=== PATIENT | male | born 1960 | race Caucasian/White ===

== ENCOUNTER → 2016-03-29 | Outpatient (REF) | payer BC, OTHER ==
[2016-03-29 13:10] LABS: IMMUNOGLOBULIN A 43.4 MG/DL (70-400); IMMUNOGLOBULIN G 452 MG/DL (681-1648); IMMUNOGLOBULIN M 71.1 MG/DL (40-230); TOTAL PROTEIN 6.2 GM/DL (6.4-8.2)
[2016-03-31 00:06] LABS: FREE KAPPA LIGHT CHAINS SERUM 7.68 mg/L (3.30-19.40); FREE LAMBDA LIGHT CHAINS SERUM 3.27 mg/L (5.71-26.30); KAPPA/LAMBDA RATIO SERUM 2.35 (0.26-1.65)
[2016-03-31 13:05] LABS: ALBUMIN 3.97 GM/DL (3.29-5.55); ALBUMIN % 64.1 % (55.8-66.1); GAMMA GLOBULIN % 8.3 % (11.1-18.8)
== END ==
LOC: M LAB REF 12:12
PROVIDERS: ATTEND Internal Medicine Medical Oncology
DX: E78.6 Lipoprotein deficiency (principal)

== ENCOUNTER → 2016-07-28 | Outpatient (REF) | payer BC, OTHER ==
[2016-07-28 13:30] LABS: IMMUNOGLOBULIN A 50.4 MG/DL (70-400); IMMUNOGLOBULIN G 459 MG/DL (681-1648); IMMUNOGLOBULIN M 79.8 MG/DL (40-230)
[2016-07-30 00:19] LABS: FREE KAPPA LIGHT CHAINS SERUM 8.13 mg/L (3.30-19.40); FREE LAMBDA LIGHT CHAINS SERUM 6.16 mg/L (5.71-26.30); KAPPA/LAMBDA RATIO SERUM 1.32 (0.26-1.65)
[2016-08-02 13:27] LABS: ALBUMIN % 65.7 % (55.8-66.1); GAMMA GLOBULIN % 7.1 % (11.1-18.8)
== END ==
LOC: M LAB REF 08:30
PROVIDERS: ATTEND Internal Medicine Medical Oncology
DX: Z85.72 Personal history of non-Hodgkin lymphomas (principal)

== ENCOUNTER → 2016-12-06 | Outpatient (REF) | payer BC, OTHER ==
[2016-12-06 14:07] LABS: IMMUNOGLOBULIN A 43.1 MG/DL (70-400); IMMUNOGLOBULIN G 437 MG/DL (681-1648); IMMUNOGLOBULIN M 83.7 MG/DL (40-230); TOTAL PROTEIN 6.6 GM/DL (6.4-8.2)
[2016-12-07 10:53] LABS: ALBUMIN 4.38 GM/DL (3.29-5.55); ALBUMIN % 66.4 % (55.8-66.1); GAMMA GLOBULIN % 7.3 % (11.1-18.8)
[2016-12-09 00:08] LABS: FREE KAPPA LIGHT CHAINS SERUM 5.8 mg/L (3.3-19.4); FREE LAMBDA LIGHT CHAINS SERUM 6.8 mg/L (5.7-26.3); KAPPA/LAMBDA RATIO SERUM 0.85 (0.26-1.65)
== END ==
LOC: M LAB REF 12:35
PROVIDERS: ATTEND Internal Medicine Medical Oncology
DX: Z85.72 Personal history of non-Hodgkin lymphomas (principal)

== ENCOUNTER → 2016-12-08 | Outpatient (CLI) | payer BC, OTHER ==
[~2016-12-08] MED LIST: GASTROGRAFIN SOLUTION 30ML (Q9963) As Ordered ONE; ISOVUE-370 76% 100ML VIAL (Q9967) As Ordered ONE
--- NOTE | 2016-12-08 11:36 | REP ---
CT NECK WITH CONTRAST: HISTORY: Lymphoma. CONTRAST: Isovue 370, 100 mL. COMPARISON: 04/23/2014. The naso-, debo- and hypopharynx, larynx and subglottic trachea are normal in appearance. The salivary and thyroid glands are normal in size and density. Small lymph nodes less than 1 cm in size are present in the internal jugular chains, posterior triangles, submandibular and submental areas. Degenerative change is present in the cervical spine. The lung apices are clear. The visualized sinuses are clear. IMPRESSION: There is no neck mass or adenopathy. Signed by Jose Francisco Billingsley MD 12/08/2016 11:40 A
--- NOTE | 2016-12-09 07:09 | REP ---
Clinical: History of lymphoma for reevaluation. Technique: Axial contrast enhanced images from the thoracic inlet to the upper abdomen using 100 ml Isovue 370 intravenous contrast material with coronal and sagittal re-formations. Comparison: 04/23/2014. Findings: The lung peter are well-aerated and demonstrate chronic, age appearing interstitial changes along with minimal scattered chronic fibroatelectatic change and posterior dependent changes. No acute consolidation, significant nodule or mass lesion. No pleural effusion/reaction or pneumothorax. Again bronchial tree is patent. No axillary, hilar, or mediastinal adenopathy. Stable calcified right hilar lymph nodes are unchanged. Mediastinum demonstrates normal thoracic aorta, pulmonary vasculature and heart/pericardium. Limited upper abdomen demonstrates fatty infiltration to the liver along with few scattered stable hypodensities suggesting cysts as well as cholelithiasis. Normal bilateral adrenal glands identified. Surrounding musculoskeletal structures demonstrate stable degenerative changes including Schmorl's nodes involving the superior endplate of T8 and T10. Impression: Chronic interstitial changes and scattered fibro atelectatic change. No acute adenopathy, mass lesion or pleural effusion. Signed by Francisco Ngo MD 12/09/2016 07:01 A
--- NOTE | 2016-12-09 07:15 | REP ---
Clinical: Lymphoma for reevaluation. Technique: Axial contrast enhanced images from the lung bases to the pubic symphysis using oral and 100 ml Isovue 370 intravenous contrast material with precontrast and delayed images of the abdomen as well as coronal and sagittal re-formations. Comparison: 04/23/2014. Findings: Liver demonstrates fatty infiltration along with few scattered stable hypodensities measuring up to 1.5 cm and consistent with small benign hepatic cysts. Spleen, pancreas, bilateral adrenal glands and kidneys are normal. Cholelithiasis noted without CT evidence for acute cholecystitis. The enteric system is without obstruction or acute inflammatory process and a normal terminal ileum and appendix are identified in the right lower quadrant. Few scattered sigmoid diverticula noted without acute diverticulitis. Pelvis demonstrates normal bladder and age appropriate prostate/seminal vesicles. No ascites. No intraperitoneal or retroperitoneal adenopathy. No free air. Vasculature appears normal and without aneurysm or dissection. Musculoskeletal structures demonstrate age-related changes without focal osseous abnormality. Impression: 1. No acute abdominopelvic pathology appreciated. Specifically, no adenopathy, mass, or ascites. 2. Stable fatty infiltration to the liver with scattered hepatic hypodensities compatible with cysts. 3. Cholelithiasis without CT evidence for acute cholecystitis. 4. Further chronic changes as described above. Signed by Francisco Ngo MD 12/09/2016 07:06 A
== END ==
LOC: M RAD 09:00
PROVIDERS: ATTEND Internal Medicine Medical Oncology
DX: K80.80 Other cholelithiasis without obstruction (principal); Z85.72 Personal history of non-Hodgkin lymphomas
CPT/HCPCS: 70491; 71260; 74178; Q9963; Q9967

== ENCOUNTER → 2017-03-13 | Outpatient (CLI) | payer BC, OTHER | LOC: M RAD 14:20 | DX: R05 Cough (principal) | CPT/HCPCS: 71046 ==

== ENCOUNTER → 2017-06-08 | Outpatient (REF) | payer BC, OTHER ==
[2017-06-09 10:47] LABS: ALBUMIN 4.57 GM/DL (3.29-5.55); ALBUMIN % 65.3 % (55.8-66.1); ALPHA-1-GLOBULIN % 4.2 % (2.9-4.9); ALPHA-1-GLOBULINS 0.29 GM/DL (0.17-0.41); ALPHA-2-GLOBULINS 0.85 GM/DL (0.42-0.99); ALPHA-2-GLOBULINS % 12.2 % (7.1-11.8); BETA-1-GLOBULINS 0.41 GM/DL (0.28-0.60); BETA-1-GLOBULINS % 5.8 % (4.7-7.2); BETA-2-GLOBULINS 0.34 GM/DL (0.19-0.55); BETA-2-GLOBULINS % 4.8 % (3.2-6.5); GAMMA GLOBULIN % 7.7 % (11.1-18.8); GAMMA GLOBULINS 0.54 GM/DL (0.65-1.58)
[2017-06-10 00:06] LABS: BETA 2 MICROGLOBULIN 1.5 mg/L (0.6-2.4)
[2017-06-10 00:06] LABS: FREE KAPPA LIGHT CHAINS SERUM 6.5 mg/L (3.3-19.4); FREE LAMBDA LIGHT CHAINS SERUM 7.6 mg/L (5.7-26.3); KAPPA/LAMBDA RATIO SERUM 0.86 (0.26-1.65)
== END ==
LOC: M LAB REF 13:04
DX: C85.90 Non-Hodgkin lymphoma, unspecified, unspecified site (principal)
CPT/HCPCS: 84165

== ENCOUNTER → 2017-09-12 | Outpatient (REF) | payer BC, OTHER ==
[2017-09-13 17:28] LABS: LDL DIRECT 131 mg/dL (0-99)
== END ==
LOC: M LAB REF 13:21
DX: E78.00 Pure hypercholesterolemia, unspecified (principal)

== ENCOUNTER → 2017-12-06 | Outpatient (CLI) | payer BC, OTHER ==
[~2017-12-06] MED LIST changes: +GASTROGRAFIN SOLUTION 30ML (Q9963) As Ordered; -GASTROGRAFIN SOLUTION 30ML (Q9963) As Ordered ONE; +ISOVUE-370 76% 100ML VIAL (Q9967) As Ordered; -ISOVUE-370 76% 100ML VIAL (Q9967) As Ordered ONE
== END ==
LOC: M RAD 11:24
DX: C83.90 Non-follicular (diffuse) lymphoma, unspecified, unspecified site (principal); K76.0 Fatty (change of) liver, not elsewhere classified; K76.89 Other specified diseases of liver
CPT/HCPCS: Q9963

== ENCOUNTER → 2019-04-15 | Outpatient (REF) | payer BC, OTHER ==
[~2019-04-15] MED LIST changes: +ATOR1TAB21 PO; +DULO1CAP6 PO; +FLOM0.4C39 PO; -GASTROGRAFIN SOLUTION 30ML (Q9963) As Ordered; -ISOVUE-370 76% 100ML VIAL (Q9967) As Ordered; +OXCA300S3 PO; +PROP60TA14 PO; +SYNT50TA PO
[2019-04-15 13:04] LABS: BASO % 0.5 % (0.0-1.0); EOS # 0.1 10^3/uL (0.0-0.5); EOS % 1.9 % (0.0-3.0); HEMATOCRIT 45.1 % (42.0-52.0); HEMOGLOBIN 15.5 g/dl (13.5-17.5); LYMPH # 1.2 10^3/uL (1.5-5.0); LYMPH % 20.8 % (24.0-44.0); MEAN CORPUSCULAR HEMOGLOBIN 32.9 pg (27.0-33.0); MEAN CORPUSCULAR HGB CONC 34.4 g/dl (32.0-36.5); MEAN CORPUSCULAR VOLUME 95.8 fl (80.0-96.0); MONO # 0.5 10^3/uL (0.0-0.8); MONO % 8.3 % (0.0-5.0); NEUTROPHILS # 3.9 10^3/uL (1.5-8.5); NEUTROPHILS % 68.3 % (36.0-66.0); PLATELET COUNT, AUTOMATED 165 10^3/uL (150-450); RED BLOOD COUNT 4.71 10^6/uL (4.30-6.10); WHITE BLOOD COUNT 5.7 10^3/uL (4.0-10.0)
[2019-04-15 13:19] LABS: ALBUMIN 3.9 GM/DL (3.2-5.2); ALT/SGPT 50 U/L (12-78); BILIRUBIN,TOTAL 0.5 MG/DL (0.2-1.0); BLOOD UREA NITROGEN 14 MG/DL (7-18); CALCIUM LEVEL 8.9 MG/DL (8.5-10.1); CARBON DIOXIDE LEVEL 28 MEQ/L (21-32); CHLORIDE LEVEL 108 MEQ/L (98-107); GLOMERULAR FILTRATION RATE > 60.0 (>56); GLUCOSE, FASTING 154 MG/DL (70-100); POTASSIUM SERUM 3.9 MEQ/L (3.5-5.1); RHEUMATOID FACTOR QUANT < 10.0 IU/ML (<15.0); SODIUM LEVEL 140 MEQ/L (136-145)
[2019-04-15 13:20] LABS: VITAMIN B12 LEVEL 748 PG/ML
[2019-04-15 13:21] LABS: FOLATE 18.9 NG/ML
[2019-04-15 13:28] LABS: ERYTHROCYTE SEDIMENTATION RATE 21 mm/hr (0-20)
[2019-04-15 13:32] LABS: HEMOGLOBIN A1c 6.5 %
[2019-04-16 10:45] LABS: ALBUMIN % 56.5 % (55.8-66.1); ALPHA-1-GLOBULIN % 4.2 % (2.9-4.9); ALPHA-2-GLOBULINS % 12.1 % (7.1-11.8); BETA-1-GLOBULINS % 5.9 % (4.7-7.2); BETA-2-GLOBULINS % 4.9 % (3.2-6.5)
[2019-04-16 10:46] LABS: ALBUMIN 4.17 GM/DL (3.29-5.55); ALPHA-1-GLOBULINS 0.29 GM/DL (0.17-0.41); ALPHA-2-GLOBULINS 0.85 GM/DL (0.42-0.99); BETA-1-GLOBULINS 0.41 GM/DL (0.28-0.60); BETA-2-GLOBULINS 0.34 GM/DL (0.19-0.55); GAMMA GLOBULIN % 13.4 % (11.1-18.8); GAMMA GLOBULINS 0.94 GM/DL (0.65-1.58)
[2019-04-16 10:59] LABS: DRVV SCREEN 45.5 SEC
[2019-04-16 11:03] LABS: PTT LUPUS TYPE ANTICOAG SCREEN 1.1 (0-1.2)
== END ==
LOC: M LABNEURO 09:04
PROVIDERS: ATTEND Psychiatry & Neurology Neurology
DX: G62.9 Polyneuropathy, unspecified (principal)

== ENCOUNTER → 2019-08-14 | Outpatient (CLI) | payer BC, OTHER ==
[~2019-08-14] MED LIST changes: +ACET-907 PO; +CYCL-707 PO; +GASTROGRAFIN SOLUTION 30ML (Q9963) As Ordered ONE; +ISOVUE-370 76% 100ML VIAL As Ordered ONE; +METF-838; +MYSO50TA5 PO; +NORC1TAB7 PO; +PRIM50TA6 PO
--- NOTE | 2019-08-14 10:09 | REP ---
Clinical: History of B-cell lymphoma. Technique: Axial contrast enhanced images from the thoracic inlet to the upper abdomen (followed by CT of the abdomen and pelvis) using 100 ml Isovue 370 intravenous contrast material. Coronal and sagittal re-formations obtained. Comparison: 12/06/2017. Findings: Enlarged lymph nodes in the right axillary region measure up to 2.6 cm maximal diameter. No significant left axillary, mediastinal, or hilar adenopathy noted. Further evaluation of the mediastinum demonstrates normal thoracic aorta, pulmonary vasculature and heart/pericardium. The bilateral lung peter are well-aerated and clear. No consolidation, significant nodule, or mass lesion. No pleural effusion. No pneumothorax. Surrounding musculoskeletal structures are intact. Impression: 1. Prominent right axillary adenopathy up to 2.6 cm diameter. 2. No further adenopathy, mediastinal or pleuroparenchymal process appreciated. Electronically Signed by Francisco Ngo MD 08/14/2019 10:00 A
--- NOTE | 2019-08-14 10:16 | REP ---
Clinical: History of B-cell lymphoma. Technique: Axial contrast enhanced images from the lung bases to the pubic symphysis using 100 ml Isovue 370 intravenous contrast material with coronal and sagittal re-formations. Delayed images of the abdomen obtained. Comparison: 12/06/2017. Findings: Liver again demonstrates few scattered small hepatic cysts measuring up to 1.4 cm diameter. Spleen, pancreas, bilateral adrenal glands and kidneys are normal. Cholelithiasis noted without acute cholecystitis. The enteric system is without obstruction or acute inflammatory process. Few scattered colonic diverticula noted without acute diverticulitis. Normal terminal ileum and appendix identified in the right lower quadrant. Pelvis demonstrates normal bladder and age appropriate prostate/seminal vesicles. No ascites. No free air. No adenopathy. Abdominal aorta and vasculature without aneurysm or dissection. Musculoskeletal structures are intact. Impression: 1. Few stable hepatic cysts again noted. 2. Cholelithiasis. 3. Colonic diverticula without acute diverticulitis. 4. No evidence for adenopathy, recurrence or metastatic disease. Electronically Signed by Francisco Ngo MD 08/14/2019 10:08 A
== END ==
LOC: M RAD 07:27
PROVIDERS: ATTEND Internal Medicine Medical Oncology
DX: C85.10 Unspecified B-cell lymphoma, unspecified site (principal)
CPT/HCPCS: 71260; 74177; Q9963; Q9967

== ENCOUNTER → 2020-01-01 | Outpatient (CLI) | payer BC, OTHER ==
[~2020-01-01] MED LIST changes: -ACET-907 PO; -CYCL-707 PO; -GASTROGRAFIN SOLUTION 30ML (Q9963) As Ordered ONE; -ISOVUE-370 76% 100ML VIAL As Ordered ONE; -METF-838; -MYSO50TA5 PO; -NORC1TAB7 PO
== END ==
LOC: M LABSMTC 13:52
PROVIDERS: ATTEND Anesthesiology
DX: Z01.818 Encounter for other preprocedural examination (principal)
CPT/HCPCS: C9803; U0003

== ENCOUNTER 2020-02-06 09:41 | Emergency (ER) | payer BC, OTHER ==
[~2020-02-06] VITALS: Ht 188 cm; Wt 112.2 kg
[2020-02-06] MEDS ORDERED: METF-838 (09:58)
[2020-02-06] MEDS ORDERED: ACET-907 PO (09:58)
[2020-02-06] MEDS ORDERED: CYCLOBENZAPRINE 5MG TABLET PO ONE (11:15)
[2020-02-06] MEDS ORDERED: LIDOCAINE 5% (LIDODERM) PATCH TD ONE (11:15)
[2020-02-06] MEDS ORDERED: KETOROLAC 30 MG/ML 1ML VIAL IM ONE (11:15)
--- NOTE | 2020-02-06 11:55 | REP ---
INDICATION: low back pain. COMPARISON: 08/15/2005 TECHNIQUE: Five views lumbosacral spine performed. FINDINGS: There is no compression fracture. There is no malalignment with normal lumbar lordosis. There is no significant disc space narrowing. The posterior elements are intact. IMPRESSION: Negative lumbosacral spine series. <Electronically signed by James Littlejohn > 02/06/20 0733
[2020-02-06 12:10] VITALS: BP 132/65
[2020-02-06] MEDS ORDERED: traMADol 50 MG TAB PO ONE (12:30)
[2020-02-06] MEDS ORDERED: NORC1TAB7 PO (13:07)
[2020-02-06] MEDS ORDERED: CYCL-707 PO (13:07)
[2020-02-06] MEDS ORDERED: **NOTE PATIENT COMMENT** MISC XX SCH (21:00)
== END 2020-02-06 13:34 | disposition home or self-care (01) ==
LOC: M ED 09:41
DX: M54.5 Low back pain (principal); E11.9 Type 2 diabetes mellitus without complications; C85.90 Non-Hodgkin lymphoma, unspecified, unspecified site; Z92.21 Personal history of antineoplastic chemotherapy; Z94.84 Stem cells transplant status; Z88.1 Allergy status to other antibiotic agents; Z88.5 Allergy status to narcotic agent; Z79.899 Other long term (current) drug therapy; Z79.84 Long term (current) use of oral hypoglycemic drugs
CPT/HCPCS: 72110; 96372; 99283; J1885

== ENCOUNTER → 2020-03-30 | Outpatient (CLI) | payer BC, OTHER ==
[~2020-03-30] MED LIST changes: +ACET-907 PO; +CYCL-707 PO; +METF-838; +MYSO50TA5 PO; +NORC1TAB7 PO
--- NOTE | 2020-03-31 09:07 | REP ---
INDICATION: RESTAGING LYMPHOMA C85.95. 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 Recurrent in 2015 treated with chemo therapy and bone marrow transplant. Evidence of relapse involving right axillary left supraclavicular and posterior cervical lymphadenopathy. COMPARISON: Comparison is made with soft tissue neck CT study July 03, 2019, chest and abdomen CT 14 August 2019.. TECHNIQUE: Forty-six minutes following the intravenous injection of a 8.53 mCi dose of F-18 FDG, three-dimensional PET scintigraphy is acquired from the skull base to the proximal thighs. Triplanar noncontrast CT scanning is acquired through the same anatomic range for attenuation correction, and image registration with scan parameters optimized to minimize radiation exposure to the patient. PET scintigraphy and CT datasets were fused and displayed on a workstation with multiplanar and projection display capability. FINDINGS: There is low-level hypermetabolic uptake in the left supraclavicular and left cervical adenopathy seen on recent CT study. Maximum standard uptake value ranges from 3.85.1 in these lymph nodes. Similar minimally hypermetabolic uptake is seen in left subclavian and right axillary adenopathy. Right axillary adenopathy maximum SUV value is 4.71. High left axillary node shows a minimal non hypermetabolic uptake, 1.89. No other hypermetabolic adenopathy is seen. No adenopathy is noted within the chest abdomen or pelvis. However, there are multiple foci of abnormal uptake and increased medullary canal density in the skeleton indicating skeletal sites of disease. There is a large lesion in the right side of the upper sacrum where maximum standard uptake value is 8.96. There is a lesion in the right ischium, 6.64. There is a focus of hypermetabolic uptake in the right subtrochanteric femur where maximum SUV value is 5.12. There are 2 foci of slightly asymmetric increased uptake in the left iliac bone, 3.38 and 4.36 SUV. There is a right posterolateral rib focus of increased uptake where SUV value is 4.45. Lastly there is a focus of asymmetric increased uptake in the left humeral head, maximum SUV value 5.25. IMPRESSION: Hypermetabolic left cervical and supraclavicular and right axillary lymphadenopathy. There are multiple foci of hypermetabolic uptake in skeletal lesions as above as well. <Electronically signed by Jermaine Cowart > 03/31/20 0903
== END ==
LOC: M PLARAD 11:22
PROVIDERS: ATTEND Internal Medicine Medical Oncology
DX: C85.95 Non-Hodgkin lymphoma, unspecified, lymph nodes of inguinal region and lower limb (principal)
CPT/HCPCS: 78815; A9552

== ENCOUNTER → 2020-04-30 | Outpatient (CLI) | payer BC, OTHER ==
[~2020-04-30] MED LIST changes: +HYDR-3713 PO; +ISOVUE-370 76% 100ML VIAL As Ordered ONE
--- NOTE | 2020-04-30 17:34 | REPVR ---
PROCEDURE INFORMATION: Exam: CT Neck With Contrast Exam date and time: 04/30/2020 5:07 PM Age: 59 years old Clinical indication: Mass, lump, or swelling in neck; Additional info: Localized swelling mass lump TECHNIQUE: Imaging protocol: Computed tomography images of the neck with intravenous contrast. Radiation optimization: All CT scans at this facility use at least one of these dose optimization techniques: automated exposure control; mA and/or kV adjustment per patient size (includes targeted exams where dose is matched to clinical indication); or iterative reconstruction. Contrast material: ISOVUE 370; Contrast volume: 75 ml; Contrast route: INTRAVENOUS (IV); COMPARISON: PT PET/CT Skull/mid thigh 03/30/2020 12:53 PM FINDINGS: Pharynx: Unremarkable. Larynx: Unremarkable. Normal epiglottis. Retropharyngeal space: Unremarkable. Submandibular/Parotid glands: Unremarkable. Thyroid: Unremarkable. No enlarged or calcified nodules. Lymph nodes: Numerous pathologically enlarged left cervical chain and supraclavicular lymph nodes. Trachea: Unremarkable. Lungs: Unremarkable as visualized. Bones/joints: No acute osseus lesions or fractures. Soft tissues: Unremarkable. IMPRESSION: Numerous pathologically enlarged left cervical chain and supraclavicular lymph nodes. Findings concerning for malignancy of unknown primary. Correlate with history of neoplasm as well as prior PET-CT performed on 03/30/2020. Electronically signed by: Isaiah Wilson On 04/30/2020 17:34:44 PM
== END ==
LOC: M RAD 16:41
PROVIDERS: ATTEND Otolaryngology
DX: R22.1 Localized swelling, mass and lump, neck (principal)
CPT/HCPCS: 70491; Q9967

== ENCOUNTER → 2020-05-06 | Outpatient (CLI) | payer BC, OTHER ==
[~2020-05-06] MED LIST changes: -ISOVUE-370 76% 100ML VIAL As Ordered ONE; +LIDOCAINE 1% MDV 20ML VIAL As Ordered ONE; -METF-838; +METF-838 PO; +NEUR100C PO
[2020-05-06 11:50] VITALS: BP 127/66
--- NOTE | 2020-05-06 16:09 | REP ---
INDICATION: LARGE LESION, RT UPPER SACRUM. COMPARISON: None. TECHNIQUE: The procedure was performed under the direct supervision of Dr. Littlejohn. Patient has a history of a large lesion in the right side of the upper sacrum seen on a previous PET scan performed on 03/30/2020. The risks and benefits of the procedure were explained to the patient informed consent was obtained. The right sacral mass was localized using CT guidance. The skin was prepped and draped in a sterile fashion. 1% lidocaine was used as a local anesthetic. Using CT guidance a 14 gauge coaxial bone biopsy system was inserted and 5 core biopsy samples were obtained. The patient tolerated the procedure well and there were no immediate complications. After the appropriate amount to monitor convalescence the patient was discharged from the department. FINDINGS: None IMPRESSION: CT-guided right sacral biopsy. <Electronically signed by Adebayo Nickerson > 05/06/20 1726 <Electronically signed by James Littlejohn > 05/06/20 [id number]
== END ==
LOC: M IRPRO 10:40
PROVIDERS: ATTEND Internal Medicine Medical Oncology
DX: C88.0 Waldenstrom macroglobulinemia (principal)

== ENCOUNTER → 2020-05-07 | Outpatient (CLI) | payer BC, OTHER ==
[~2020-05-07] MED LIST changes: -LIDOCAINE 1% MDV 20ML VIAL As Ordered ONE; -NEUR100C PO
--- NOTE | 2020-05-07 10:44 | REP ---
INDICATION: PAIN COMPARISON: None. TECHNIQUE: Three views of the sacrum and coccyx. FINDINGS: Bilateral sacroiliac joints appear normal. Sacrum and coccyx appear intact. No obvious acute fracture or dislocation/subluxation. IMPRESSION: . No acute fracture or dislocation. <Electronically signed by Francisco Ngo > 05/07/20 1040
--- NOTE | 2020-05-07 10:44 | REP ---
INDICATION: PAIN COMPARISON: None. TECHNIQUE: AP, lateral, bilateral oblique, and coned-down views of the lumbar spine. FINDINGS: Alignment and lordosis maintained. Vertebral bodies are intact. Disc spaces are relatively normal/age-appropriate. No acute fracture/compression injury or subluxation. No obvious spondylolysis or spondylolisthesis. IMPRESSION: Normal age-appropriate lumbosacral Spine series. <Electronically signed by Francisco Ngo > 05/07/20 1789
--- NOTE | 2020-05-07 11:27 | REP ---
INDICATION: PAIN COMPARISON: None. TECHNIQUE: AP and frog-lateral views of the right femur. FINDINGS: Age-related changes at the hip include mild joint space narrowing and subtle increased sclerosis along the acetabular roof. No further arthritic degenerative changes. No acute fracture or dislocation. IMPRESSION: Age-related changes at the hip.. No acute fracture or dislocation. <Electronically signed by Francisco Ngo > 05/07/20 1123
--- NOTE | 2020-05-07 11:28 | REP ---
INDICATION: PAIN COMPARISON: None. TECHNIQUE: Single AP view of the pelvis. FINDINGS: No evidence for fracture or dislocation. Mild age-related degenerative changes to the bilateral hip joints. Surrounding soft tissues are unremarkable. IMPRESSION: Age-related changes to the pelvis and bilateral hips. <Electronically signed by Francisco Ngo > 05/07/20 1121
== END ==
LOC: M RAD 09:26
PROVIDERS: ATTEND Family Medicine
DX: M16.0 Bilateral primary osteoarthritis of hip (principal)

== ENCOUNTER → 2020-05-07 | Outpatient (CLI) | payer BC, OTHER ==
[~2020-05-07] MED LIST changes: +LIDOCAINE 1% MDV 20ML VIAL As Ordered ONE; +NEUR100C PO
[2020-05-07 10:10] VITALS: BP 111/67
--- NOTE | 2020-05-07 17:00 | REP ---
INDICATION: LOCALIZED SWELLING,MASS. COMPARISON: None. TECHNIQUE: The procedure was performed under the direct supervision of Dr. Littlejohn. The risks and benefits of the procedure were explained to the patient and informed consent was obtained. The patient has a history of numerous, pathologically enlarged left cervical chain and supraclavicular lymph nodes seen on a previous CT scan dated 04/30/2020. A lymph node in the left lateral neck was localized using ultrasound guidance. The skin was prepped and draped in a sterile fashion. 1% lidocaine was used as a local anesthetic. Using ultrasound guidance a 19/20 gauge coaxial needle biopsy system was inserted and advanced into the lymph node. Eight core biopsy samples were obtained and sent to the lab. The patient tolerated the procedure well and there were no immediate complications. After the appropriate amount to monitor convalescence the patient was discharged from the department. FINDINGS: None IMPRESSION: Ultrasound-guided left neck lymph node biopsy. <Electronically signed by Adebayo Nickerson > 05/07/20 1635 <Electronically signed by James Littlejohn > 05/07/20 3253
== END ==
LOC: M IRPRO 09:20
PROVIDERS: ATTEND Otolaryngology
DX: C83.81 Other non-follicular lymphoma, lymph nodes of head, face, and neck (principal)

== ENCOUNTER → 2020-06-04 | Outpatient (CLI) | payer BC, OTHER ==
[~2020-06-04] MED LIST changes: -LIDOCAINE 1% MDV 20ML VIAL As Ordered ONE
--- NOTE | 2020-06-04 14:53 | RADONC.CN ---
Radiation Oncology Hx/Consult Radiation Oncology Consult Date of Service: Jun 04, 2020 Pt Identifier Isaiah Barrow is a 59 year old male with a history of lymphoplasmacytic lymphoma diagnosed in 2008. He has pain in the low back and was noted to have PET-CT avid bone lesions in the right hemipelvis. He is seen today for consideration of palliative RT. Diagnosis/Treatment History Oncologic History Per Dr. 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 TREATMENT SUMMARY: Rituximab/cyclophosphamide/vincristine/prednisolone, six cycles 2008. Rituximab maintenance completed 2013. Relapse heralded by IgG kappa and urine free light chain progression 2013. RVD 11/2013 - 2014, major NC complicated by peripheral neuropathy. 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 PET CT scan 03/30/2020 showed hypermetabolic left cervical and supraclavicular and right axillary lymphadenopathy with multiple foci of hypermetabolic uptake in skeletal lesions. Bone and soft tissue sacrum core biopsy 05/06/2020 showed persistent/recurrent lymphoplasmacytic lymphoma [id number] L273P positive. Left neck fine-needle biopsy 05/07/2020 showed lymphoplasmacytic lymphoma consistent with recurrence. Recent data: 03/30/20 PET-CT FINDINGS: There is low-level hypermetabolic uptake in the left supraclavicular and left cervical adenopathy seen on recent CT study. Maximum standard uptake value ranges from 3.85.1 in these lymph nodes. Similar minimally hypermetabolic uptake is seen in left subclavian and right axillary adenopathy. Right axillary adenopathy maximum SUV value is 4.71. High left axillary node shows a minimal non hypermetabolic uptake, 1.89. No other hypermetabolic adenopathy is seen. No adenopathy is noted within the chest abdomen or pelvis. However, there are multiple foci of abnormal uptake and increased medullary canal density in the skeleton indicating skeletal sites of disease. There is a large lesion in the right side of the upper sacrum where maximum standard uptake value is 8.96. There is a lesion in the right ischium, 6.64. There is a focus of hypermetabolic uptake in the right subtrochanteric femur where maximum SUV value is 5.12. There are 2 foci of slightly asymmetric increased uptake in the left iliac bone, 3.38 and 4.36 SUV. There is a right posterolateral rib focus of increased uptake where SUV value is 4.45. Lastly there is a focus of asymmetric increased uptake in the left humeral head, maximum SUV value 5.25. IMPRESSION: Hypermetabolic left cervical and supraclavicular and right axillary lymphadenopathy. There are multiple foci of hypermetabolic uptake in skeletal lesions as above as well. 05/07/20 Biopsy Neck, left, fine needle biopsy: Lymphoplasmacytic lymphoma, consistent with recurrence. Flow cytometry at [facility] showed CD5-negative, [id number] and kappa- restricted mature B-cell neoplasm, compatible with the above diagnosis. Cytogenetic studies are pending, and will be reported in an addendum. Bone and soft tissue, sacral, biopsy: Persistent/recurrent lymphoplasmacytic lymphoma. MYD88 p.L273P (legacy p.L265P) Direct Mutation Analysis: Positive for a MYD88 p.L273 gene mutation. Interval History Has pain in the low back right sided radiates to right buttock. Does not radiate down the right leg. No Left sided pain. Also has been taking gabapentin without positive effect. Does not want to start systemic therapy. Follows with Dr. Zari porter in [place] as well as Dr. Ontiveros locally. Past Medical History: Peripheral neuropathy. Essential tremor. Hypothyroidism. Diabetes mellitus. Past Surgical History: As above Family History: Father lung cancer Brother lung cancer Social History: Never smoker Drinks alcohol occasionally Allergies / Meds Allergies: Coded Allergies: clindamycin (Verified Allergy, Intermediate, RASH, 01/01/20) ropinirole (Verified Allergy, Intermediate, RASH, 01/01/20) Home Meds Reported Medications Gabapentin (Neurontin) 100 Mg Capsule, 2 CAP PO TID for 30 Days, #180 CAP 05/27/20 Primidone (Mysoline) 50 Mg Tablet, 1 TAB PO QPM for 30 Days, #30 TAB 03/20/20 Metformin HCl (Metformin HCl ER) 500 Mg Tab.er.24h, 500 MG PO DAILY 02/06/20 Atorvastatin Calcium (Atorvastatin Calcium) 20 Mg Tab, 20 MG PO DAILY for 30 Days, #30 TAB 12/11/17 Oxcarbazepine (Oxcarbazepine) 300 Mg/5 Ml Aimee, 300 MG PO BID, AIMEE 12/11/17 Levothyroxine Sodium (Synthroid) 50 Mcg Tab, 50 MCG PO DAILY for 30 Days, #30 TAB 12/11/17 Tamsulosin HCl (Flomax) 0.4 Mg Cap, 0.4 MG PO DAILY for 30 Days, #30 CAP 12/11/17 Duloxetine Hcl (Duloxetine HCl) 60 Mg Cap, 60 MG PO BID for 30 Days, #60 CAP 12/11/17 Propranolol Hcl (Propranolol HCl) 60 Mg Tab, 60 MG PO DAILY for 30 Days, #60 TAB 12/11/17 Review of Systems General: Reports: Normal Appetite Constitutional: Denies: Chills, Fever, Night Sweats Eyes: Denies: Pain, Vision change HEENT: Denies: Head Aches, Dysphagia, Sore Throat Skin: Denies: Rash, Lesions, Bruising Pulmonary: Denies: Dyspnea, Cough Cardiovascular: Denies: Chest Pain, Palpitations, Edema Gastrointestinal: Denies: Nausea, Vomiting, Abdominal Pain, Diarrhea Genitourinary: Denies: Dysuria, Frequency, Incontinence Hematologic: Denies: Bruising, Petecchia, Enlarged Lymph Nodes Musculoskeletal: Reports: Back pain; Denies: Neck pain Neurological: Reports: Other Symptoms (Tremor); Denies: Weakness, Numbness, Incoordination Psych: Reports: Mood Normal; Denies: Memory Issues, Thoughts of Self Harm Vital Signs Ht 73" Wt 247 lbs BMI 33 T 96.8 P 65 RR 18 BP 143/78 O2 96% Pain 7 Fatigue 2 General Exam: Positive: Alert, Cooperative, No Acute Distress Eye Exam: Positive: PERRLA, EOMI ENT EXAM: Positive: Mucous membr. moist/pink, Pharynx Normal Neck Exam: Positive: Lymphadenopathy; Negative: Thyromegaly Chest Exam: Positive: Normal air movement; Negative: Rales, Rhonchi, Wheezing Heart Exam: Positive: Rate Normal, Regular Rhythm Abdomen Exam: Positive: Soft; Negative: Tenderness, Mass Extremity Exam: Negative: Edema, Tenderness Neuro Exam: Positive: Normal Gait, Normal Speech, Cranial Nerves 3-12 NL, Other (Resting tremor) Psych Exam: Positive: Mental status NL, Mood NL, Memory Intact Other Physical Findings No spinal or paraspinal tenderness on exam Diagnostic and Laboratory Diagnostic Review Radiologic images, relevant labs and pathology reports were personally reviewed and discussed with Mr. Barrow. Assessment and Plan Impression Mr. Barrow is a 59 year old male with a history of history of lymphoplasmacytic lymphoma diagnosed in 2008. He has pain in the low back and was noted to have PET-CT avid bone lesions in the right hemipelvis. He is seen today for consideration of palliative RT. Stage Lymphoplasmacytic lymphoma stage IV Performance Status ECOG 1 Plan We had an extensive discussion with Mr. Barrow regarding the diagnosis at hand and available therapeutic options. He has marked pain in the low back, attributes at least some of this to arthritis. He prefers to remain off of systemic therapy at this time. He has a large degree of PET-CT avidity in the right sacrum and ischium which is biopsy proven. Both of these locations correlate with the pain he has been experiencing. He has no impending fractures and minimal evidence of bone destruction from this process. I proposed palliative RT to the right hemipelvis 20 Gy in 5 fractions. The side effects of this regimen would be mild if any, possibly some fatigue and/or loose bowel movements, both of which would be self-limited. He agreed to proceed. We discussed the logistics of receiving radiation therapy in detail including the need for a 1-time planning session. After discussing the risks, benefits and alternatives to radiation therapy, Mr. Barrow was amenable to pursuing radiotherapy. All questions were answered to the patient's satisfaction. We instructed the patient that if there were any questions,concerns or changes in clinical status in the interim to contact us. Recommendations Palliative RT to the right hemipelvis 20 Gy in 5 fractions Simulation in the next week Billing Statement Total time of [31] minutes was spent preparing for the visit [3], obtaining HPI [4], examining the patient [3], reviewing diagnostic tests [6], discussing management options [5], coordinating care [1], and writing this note [9]. SHRUTHI VALDEZ MD Jun 04, 2020 14:53
== END ==
LOC: M ONCR 12:56
PROVIDERS: ATTEND General Practice
DX: C88.0 Waldenstrom macroglobulinemia (principal)

== ENCOUNTER 2020-06-16 13:40 | Outpatient (RCR) | payer BC, OTHER | END 2020-06-26 | LOC: M ONCR 13:40 | PROVIDERS: ATTEND General Practice | DX: C90.00 Multiple myeloma not having achieved remission (principal) ==

== ENCOUNTER 2020-06-29 16:25 | Emergency (ER) | payer BC, OTHER ==
[~2020-06-29] VITALS: Ht 185.4 cm; Wt 245.0 kg
[2020-06-29 18:07] LABS: BASO % 0.3 % (0.0-1.0); EOS % 0.1 % (0.0-3.0); HEMATOCRIT 43.6 % (42.0-52.0); HEMOGLOBIN 14.7 g/dl (13.5-17.5); LYMPH # 0.4 10^3/uL (1.5-5.0); LYMPH % 3.6 % (24.0-44.0); MEAN CORPUSCULAR HEMOGLOBIN 31.3 pg (27.0-33.0); MEAN CORPUSCULAR HGB CONC 33.7 g/dl (32.0-36.5); MONO # 0.9 10^3/uL (0.0-0.8); MONO % 8.2 % (2.0-8.0); NEUTROPHILS % 87.4 % (36.0-66.0); PLATELET COUNT, AUTOMATED 205 10^3/uL (150-450); RED BLOOD COUNT 4.69 10^6/uL (4.30-6.10); WHITE BLOOD COUNT 11.4 10^3/uL (4.0-10.0)
[2020-06-29] MEDS ORDERED: ONDANSETRON 4MG/2ML VIAL IV ONE (18:10)
[2020-06-29] MEDS: MORPHINE 4 MG/ML 1ML VIAL/SYRINGE (J2270) IV PRN ×2 (18:39→20:36)
[2020-06-29 18:40] LABS: BLOOD UREA NITROGEN 14 MG/DL (7-18); CALCIUM LEVEL 9.5 MG/DL (8.5-10.1); CARBON DIOXIDE LEVEL 25 MEQ/L (21-32); CHLORIDE LEVEL 104 MEQ/L (98-107); CREATININE FOR GFR 0.95 MG/DL (0.70-1.30); GLOMERULAR FILTRATION RATE > 60.0 (>56); GLUCOSE, FASTING 158 MG/DL (70-100); POTASSIUM SERUM 4.2 MEQ/L (3.5-5.1); SODIUM LEVEL 137 MEQ/L (136-145)
[2020-06-29 18:43] LABS: ALBUMIN 3.4 GM/DL (3.2-5.2); ALT/SGPT 33 U/L (12-78); BILIRUBIN,DIRECT < 0.1 MG/DL (0.0-0.2); BILIRUBIN,TOTAL 0.6 MG/DL (0.2-1.0); TOTAL PROTEIN 8.5 GM/DL (6.4-8.2)
--- NOTE | 2020-06-29 19:00 | REP ---
INDICATION: pain hx bony mets ro fx. COMPARISON: Comparison pelvic radiograph is from 07 May 2020. Comparison PET-CT study is from March 30, 2020.. TECHNIQUE: AP view of the pelvis. Single-view. FINDINGS: Single AP view of the pelvis shows an intact bony pelvic ring. A small bone island is again seen in the proximal femur on the right. Symphysis pubis and SI joints are intact. Hip joint spaces are preserved. No large bony destructive lesion is seen. PET-CT shows extensive metastatic involvement the skeleton including the right ischium the right sacrum and the left iliac bone. No definite lytic destructive focus is appreciated on plain radiographs. No fracture or collapse is seen. IMPRESSION: No definite lytic metastasis is radiographically visible. No pathologic fracture is seen. No soft tissue mass is seen. <Electronically signed by Jermaine Cowart > 06/29/20 [id number]
--- NOTE | 2020-06-29 19:02 | REP ---
INDICATION: pain hx bony mets ro fx. COMPARISON: Comparison pelvic radiographs May 07, 2020.. TECHNIQUE: Three views of the sacrum and coccyx are provided. FINDINGS: AP and tube angled views of the sacrum demonstrate poor definition of the 2 of the right mid sacral alar lines corresponding to the location of the large metastatic focus seen on recent PET-CT. No pathologic fracture is appreciated. No new lesion is seen. Presacral soft tissues are not widened. IMPRESSION: Poor definition of 2 of the right sacral alar lines corresponding with the location of the previously noted right sacral metastasis. Otherwise negative. No fracture seen. <Electronically signed by Jermaine Cowart > 06/29/20 [id number]
--- NOTE | 2020-06-29 19:03 | REP ---
INDICATION: pain hx bony mets ro fx. COMPARISON: No comparison radiographs. Comparison PET-CT March 30, 2020.. TECHNIQUE: Four views of the right femur are presented. FINDINGS: Four views of the right femur demonstrate normal bones, joints, and soft tissues. No fracture or subluxation is seen. No opaque foreign body noted. There is a small bone island in the femoral head on the right. No soft tissue mass or fracture is seen. IMPRESSION: Negative right femur series. <Electronically signed by Jermaine Cowart > 06/29/20 [id number]
[2020-06-29 19:17] LABS: CK-MB VALUE MASS 2.7 NG/ML (<3.6); CPK CREATINE PHOSPHOKINASE 421 U/L (39-308); MB/CK RELATIVE INDEX 0.64 (< OR =4); TROPONIN I 0.08 NG/ML (< 0.10)
--- NOTE | 2020-06-29 19:52 | ECGEPIP ---
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
[2020-06-29] MEDS ORDERED: HYDROMORPHONE HCL 0.5 MG/ 0.5 ML SYRINGE (J1170 PER 1) IV ONE ×2 (21:00→22:55)
[2020-06-29] MEDS ORDERED: MORP15TA2 PO (22:58)
[2020-06-29 23:15] VITALS: BP 135/63
[2020-06-30] MEDS ORDERED: DEXA4TA PO (12:57)
[2020-06-30] MEDS ORDERED: DILA2TAB6 PO (12:57)
== END 2020-06-29 23:45 | disposition home or self-care (01) ==
LOC: M ED 16:25
DX: R10.2 Pelvic and perineal pain (principal); M25.551 Pain in right hip; M25.571 Pain in right ankle and joints of right foot; C85.90 Non-Hodgkin lymphoma, unspecified, unspecified site; C90.00 Multiple myeloma not having achieved remission; C88.0 Waldenstrom macroglobulinemia; E11.21 Type 2 diabetes mellitus with diabetic nephropathy; E78.5 Hyperlipidemia, unspecified; Z88.1 Allergy status to other antibiotic agents; Z79.899 Other long term (current) drug therapy
CPT/HCPCS: 72170; 72220; 73552; 80048; 80076; 82550; 82553; 84484; 85025; 93005; 96374; 96375; 96376; 99285; J1170; J2270; J2405

== ENCOUNTER 2020-07-03 12:38 | Outpatient (RCR) | payer BC, OTHER ==
--- NOTE | 2020-06-30 12:53 | RADENCPD ---
Date/Time of Encounter Date of Encounter: June 30, 2020 Time of Encounter: 12:50 Encounter Jamison developed excruciating right pelvic pain ~1 hour after his first fraction of palliative RT. He presented to the ED and was given dilaudid which was helpful. He denies trauma to the area. States pain is 10/10 radiating down the right leg from the right pelvis. 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 For the pain I will give him a decadron pulse as well as a short supply of dilaudid PO. Will continue RT. SHRUTHI VALDEZ MD June 30, 2020 12:53
[~2020-07-03 12:38] MED LIST changes: +DEXA4TA PO; +DILA2TAB6 PO; +MORP15TA2 PO
[2020-07-03] MEDS ORDERED: DEXA4TA PO (13:00)
== END 2020-07-27 ==
LOC: M ONCR 12:38
PROVIDERS: ATTEND General Practice
DX: C90.00 Multiple myeloma not having achieved remission (principal)

== ENCOUNTER → 2020-07-07 | Outpatient (CLI) | payer BC, OTHER ==
--- NOTE | 2020-07-07 13:48 | RADENCPD ---
Date/Time of Encounter Date of Encounter: July 07, 2020 Time of Encounter: 13:44 Encounter Saw Jamison today 1 week post completion of RT to the right pelvis. He reports his pain is stable. Improved relative to the day of first treatment when he experienced a pain flare. He continues on decadron with a few says of the 10 day course remaining. He is using the dilaudid PRN sparingly. He asked about the timeframe for pain relief. It usually comes on within 2-3 post completion of RT. He stated plans to start a BTK inhibitor in the near future from his oncologist at [facility]. He would like a referral to Dr. Menjivar in orthopedics as he is concerned that there is a parallel process of lumbar spine or right hip arthritis playing a role in his right leg pain. I will place the referral for him. He can follow up with me in 3 months as planned, or sooner, if needed SHRUTHI VALDEZ MD July 07, 2020 13:48
== END ==
LOC: M ONCR 12:56
PROVIDERS: ATTEND General Practice
DX: C90.00 Multiple myeloma not having achieved remission (principal)

== ENCOUNTER → 2020-09-30 | Outpatient (CLI) | payer BC, OTHER | LOC: M ONCR 11:08 | PROVIDERS: ATTEND General Practice | DX: C90.00 Multiple myeloma not having achieved remission (principal); M54.16 Radiculopathy, lumbar region; Z79.84 Long term (current) use of oral hypoglycemic drugs; Z79.899 Other long term (current) drug therapy; Z88.1 Allergy status to other antibiotic agents; Z88.8 Allergy status to other drugs, medicaments and biological substances; Z92.3 Personal history of irradiation ==

== ENCOUNTER → 2022-07-27 | Outpatient (REF) | payer BC, OTHER | LOC: M LAB REF 16:34 | PROVIDERS: ATTEND Family Medicine | DX: E11.65 Type 2 diabetes mellitus with hyperglycemia (principal) ==

== ENCOUNTER 2022-10-04 08:50 | Emergency (ER) | payer BC, OTHER ==
[~2022-10-04] VITALS: Ht 185.4 cm; Wt 105.7 kg
[2022-10-04 12:11] VITALS: BP 118/74; TEMP 96.6; O2SAT 96
== END 2022-10-04 12:13 | disposition home or self-care (01) ==
LOC: M ED 08:50
DX: S80.12XA Contusion of left lower leg, initial encounter (principal); W22.8XXA Striking against or struck by other objects, initial encounter; Y92.89 Other specified places as the place of occurrence of the external cause; Y93.89 Activity, other specified; Y99.8 Other external cause status; Z88.1 Allergy status to other antibiotic agents; Z88.8 Allergy status to other drugs, medicaments and biological substances; E11.40 Type 2 diabetes mellitus with diabetic neuropathy, unspecified; N40.0 Benign prostatic hyperplasia without lower urinary tract symptoms; E03.9 Hypothyroidism, unspecified; M54.9 Dorsalgia, unspecified; Z85.72 Personal history of non-Hodgkin lymphomas; F41.9 Anxiety disorder, unspecified; Z79.899 Other long term (current) drug therapy; Z79.84 Long term (current) use of oral hypoglycemic drugs

== ENCOUNTER → 2024-05-29 | Outpatient (REF) | payer BC, OTHER ==
[2024-05-29 15:28] LABS: ATYPICAL LYMPH 1 % (0-5); EOSINOPHILS 1 % (0-3); LYMPHOCYTES 17 % (16-44); MONOCYTES 7 % (0-5); NEUTROPHILS 74 % (28-66); PLATELET ESTIMATE DECREASED (NORMAL)
== END ==
LOC: M LAB REF 14:21
PROVIDERS: ATTEND Family Medicine
DX: C83.50 Lymphoblastic (diffuse) lymphoma, unspecified site (principal); D72.9 Disorder of white blood cells, unspecified

== ENCOUNTER → 2024-11-25 | Outpatient (CLI) | payer BC, OTHER ==
[~2024-11-25] MED LIST changes: -FLOM0.4C39 PO; +TAMS-18 PO
[2024-11-25 18:24] LABS: LDH LACTATE DEHYDROGENASE 129 U/L (120-246)
[2024-11-25 18:25] LABS: ALT/SGPT 60 U/L (7.0-40); AST/SGOT 24 U/L (<34); CALCIUM LEVEL 9.1 MG/DL (8.3-10.6); CARBON DIOXIDE LEVEL 27 MMOL/L (20-31); CHLORIDE LEVEL 102 MMOL/L (98-107); CREATININE FOR GFR 0.83 MG/DL (0.70-1.30); GLOMERULAR FILTRATION RATE > 90.0 (>49); POTASSIUM SERUM 4.5 MMOL/L (3.5-5.1); SODIUM LEVEL 140 MMOL/L (136-145)
[2024-11-25 18:35] LABS: BASO # 0.0 10^3/uL (0.0-0.2); BASO % 0.7 % (0.0-1.0); EOS # 0.1 10^3/uL (0.0-0.5); EOS % 1.3 % (0.0-3.0); LYMPH # 0.8 10^3/uL (1.5-5.0); LYMPH % 13.0 % (24.0-44.0); MONO # 0.5 10^3/uL (0.0-0.8); MONO % 7.3 % (2.0-8.0); NEUTROPHILS # 4.8 10^3/uL (1.5-8.5); NEUTROPHILS % 77.4 % (36.0-66.0); PLATELET COUNT, AUTOMATED 284 10^3/uL (150-450)
== END ==
LOC: M WUC 15:03
PROVIDERS: ATTEND Internal Medicine
DX: C88.00 Waldenstrom macroglobulinemia not having achieved remission (principal)

== ENCOUNTER → 2024-12-04 | Outpatient (CLI) | payer BC, OTHER | LOC: M WUC 15:49 | PROVIDERS: ATTEND Nurse Practitioner Family | DX: J18.9 Pneumonia, unspecified organism (principal); R91.8 Other nonspecific abnormal finding of lung field ==

== ENCOUNTER → 2024-12-18 | Outpatient (REF) | payer BC, OTHER | LOC: M SFHCDERM 17:48 | PROVIDERS: ATTEND Physician Assistant | DX: C44.219 Basal cell carcinoma of skin of left ear and external auricular canal (principal) ==